=== PATIENT | female | born 1945 | race Caucasian/White ===

== ENCOUNTER 2020-05-04 11:47 | Outpatient (RCR) | payer MEDICARE, SELFPAY ==
[2020-05-04] MEDS: COVID-19 VACC, MRNA(PFIZER)/PF 30 MCG/0.3 ML SYRINGE IM (08:34)
[2020-05-25] MEDS: COVID-19 VACC, MRNA(PFIZER)/PF 30 MCG/0.3 ML SYRINGE IM (08:20)
== END 2020-05-04 23:59 ==
LOC: IMMUN 11:47
PROVIDERS: PCP Family Medicine; Visit Provider Family Medicine
DX: Z23 Encounter for immunization (principal)
CPT/HCPCS: 0001A; 0002A

== ENCOUNTER → 2020-08-24 08:54 | Outpatient (CLI) | payer MEDICARE, SELFPAY ==
--- NOTE | 2020-08-24 08:58 | RAD_ITS ---
There is marked osteoarthritis of the right hip with narrowing of the joint space and osteophyte formation superior aspect of the acetabulum. Under fluoroscopic control and following proper antiseptic preparation and local anesthesia contrast media was injected into the joint space using a 22-gauge spinal needle. These was followed by injection of 1% 3 mL of LIDOCAINE mixed with 2 mL CELESTONE. The patient tolerated the procedure well. Electronically Signed: Radha Mckeon, at 11:15 EDT Tel , Service support , RAD/Inj/Asp [place] Jt Should/Hip/Knee
--- NOTE | 2020-08-24 10:54 | RAD.NOTE ---
Patient had some difficulty holding her knee joint straight for the exam. She did the best that she could w/ some pain.
== END ==
PROVIDERS: PCP Internal Medicine
DX: M16.11 Unilateral primary osteoarthritis, right hip (principal)
CPT/HCPCS: 20610; 77002; Q9967; J0702